=== PATIENT | male | born 1950 | race Caucasian/White ===

== ENCOUNTER 2016-11-09 17:17 | Emergency (ER) | payer MEDICARE, MEDICAID ==
[2016-11-09] MEDS ORDERED: ONDANSETRON HCL 4 MG/2 ML VIAL ONE ×2 (17:39→17:41)
[2016-11-09] MEDS ORDERED: FENTANYL 100 MCG/2 ML VIAL ONE ×2 (17:41→22:53)
[2016-11-09] MEDS ORDERED: KETOROLAC TROMETHAMINE 30 MG/ML VIAL ONE (17:44)
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
[2016-11-09 18:25] LABS: EST GLOMERULAR FILTRATION RATE > 60 mL/min
[2016-11-09 18:26] LABS: BLOOD UREA NITROGEN 17 mg/dL (9-20); CHLORIDE 102 mmol/L (98-107); GLUCOSE 115 mg/dL (70-100); POTASSIUM 4.1 mmol/L (3.5-5.1); SODIUM 142 mmol/L (137-145)
[2016-11-09 18:27] LABS: BASOPHILS 0.6 % (0.0-2.0); EOSINOPHILS 5.6 % (0.0-6.0); EOSINOPHILS# 0.4 X 10^3uL (0.0-0.4); HEMATOCRIT 43.2 % (42.0-54.0); HEMOGLOBIN 14.7 g/dL (14.0-18.0); LYMPHOCYTES 31.8 % (20.0-40.0); LYMPHOCYTES# 2.4 X 10^3uL (0.8-3.8); MEAN CELL VOLUME 90.2 fL (80.0-100.0); MEAN CORPUS. HGB CONCENTRATION 34.1 g/dL (32.0-36.0); MEAN CORPUSCULAR HEMOGLOBIN 30.7 pg (29.0-35.0); MONOCYTES 6.6 % (2.0-10.0); MONOCYTES# 0.5 X 10^3uL (0.2-1.0); NEUTROPHILS 55.4 % (54.0-75.0); NEUTROPHILS# 4.2 X 10^3uL (2.6-6.7); PLATELET COUNT 365 X 10^3uL (130-440); RED BLOOD COUNT 4.79 X 10^6uL (4.20-6.10); RED CELL DISTRIBUTION WIDTH 12.9 % (11.5-14.5); WHITE BLOOD COUNT 7.5 X 10^3uL (3.9-10.7)
[2016-11-09 18:39] LABS: A/G RATIO 1.4; ALBUMIN 4.2 g/dL (3.5-5.0); ALKALINE PHOSPHATASE 62 U/L (38-126); ALT 32 U/L (21-72); AST 24 U/L (17-59); BILIRUBIN, TOTAL 0.4 mg/dL (0.2-1.3); CALCIUM 10.9 mg/dL (8.4-10.2); ETHYL ALCOHOL < 10 mg/dL (<10); LIPASE 76 U/L (23-300); TOTAL PROTEIN 7.3 g/dL (6.3-8.2)
[2016-11-09 18:40] LABS: INR 0.9
--- NOTE | 2016-11-09 19:05 | CT REPORT ---
HISTORY: [facility] [place] COMPARISON: None. TECHNIQUE: Axial non-contrast images obtained from skull vertex through foramen magnum. Dose reduction technique was utilized. FINDINGS: BRAIN: There is age related atrophy. No acute intracranial hemorrhage. No mass effect or hydrocephalus. T here is no CT evidence of infarction. BONES AND EXTRACRANIAL SOFT TISSUES: The orbits are unremarkable. Moderate ethmoid sinus mucosal thickening. The calvarium is intact. IMPRESSION: 1. No acute intracranial abnormality. 2. Age-related atrophy. Final Electronic Signature: This report was electronically signed by Hugo Liu MD on 11/09/2016 7:03 PM. sandy /
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
== END 2016-11-09 20:10 | disposition short-term general hospital (02) ==
LOC: ER 17:17
DX: S22.5XXA Flail chest, initial encounter for closed fracture (principal); S42.102A Fracture of unspecified part of scapula, left shoulder, initial encounter for closed fracture; S42.012A Anterior displaced fracture of sternal end of left clavicle, initial encounter for closed fracture; S27.321A Contusion of lung, unilateral, initial encounter; S27.1XXA Traumatic hemothorax, initial encounter; S20.212A Contusion of left front wall of thorax, initial encounter; S20.222A Contusion of left back wall of thorax, initial encounter; S40.212A Abrasion of left shoulder, initial encounter; R06.02 Shortness of breath; V28.4XXA Motorcycle driver injured in noncollision transport accident in traffic accident, initial encounter; Y92.488 Other paved roadways as the place of occurrence of the external cause; Z99.89 Dependence on other enabling machines and devices; Z74.3 Need for continuous supervision
CPT/HCPCS: 70450; 71010; 71260; 74177; 80053; 80320; 83690; 85025; 85610; 96374; 96375; 96376; 99285; A0425; A0427; J1170; J1885; J2405; J3010